=== PATIENT | female | born 1995 | race African-American/Black ===

== ENCOUNTER 2017-03-24 16:40 | Emergency (ER) | payer BC, OTHER ==
[~2017-03-24] VITALS: Ht 167.6 cm; Wt 65.0 kg
[~2017-03-24 16:40] MED LIST: Z.0.NO CURRENT MEDS
[2017-03-24 16:41] VITALS: BP 146/122; PULSE 69; RESP 16; TEMP 97.5; O2SAT 99
--- NOTE | 2017-03-24 18:51 | PD ---
HPI Chief Complaint: Cold / Flu Symptoms Time Seen by Provider: 18:36 Travel History International Travel<30 days: No Contact w/Intl Traveler<30days: No Traveled to known affect area: No History of Present Illness HPI 21-year-old female that presents to the ED for evaluation of cold-like symptoms. Patient she's had cold like symptoms for past 4 days and now she feels better. Per patient her work but not let her go back to work but she has not worked. Per patient she was having nausea, bodies, fevers, congestion and cough. She denies any chest or shortness of breath. No abdominal pain. Nausea or vomiting. Per patient she has been feeling better today and she would like to go back to work tomorrow if possible. Again she has no other medical issues. His been taking [id number] remedies with good relief. Per patient she didn't want to come but her boss will not let her go back to work unless she gets a note. PFSH Past Medical History Asthma: Yes Diminished Hearing: No Immunizations Current: Yes ?: Not Social History Alcohol Use: No Tobacco Use: No Substance Use: No Allergies-Medications (Allergen,Severity, Reaction): Coded Allergies: No Known Allergies (Verified , 10/09/09) Reported Meds & Prescriptions Reported Meds & Active Scripts Active Reported No Current Meds (Miscellaneous Medication) [facility] Review of Systems Except as stated in HPI: all other systems reviewed are Neg Physical Exam Narrative GENERAL: Well-nourished, well-developed patient in no apparent distress. SKIN: Warm and dry. HEAD: Atraumatic. Normocephalic. EYES: Pupils equal and round reactive to light and accommodation. No scleral icterus. No injection or drainage. ENT: No nasal bleeding or discharge. Mucous membranes pink and moist. TMs are clear with no sign of infection or perforation. No mastoid tenderness. Ear canals are intact bilaterally. No lymphadenopathy. Nostril mucosa is red and moist with clear mucus noted. No sinus tenderness to palpation noted. Tonsils are not enlarged or swollen. No ulvua Deviation. Tongue is midline. NECK: Trachea midline. No JVD. No meningeal signs noted CARDIOVASCULAR: Regular rate and rhythm. RESPIRATORY: No accessory muscle use. Clear to auscultation. Breath sounds equal bilaterally. GASTROINTESTINAL: Abdomen soft, non-tender, nondistended. Hepatic and splenic margins not palpable. MUSCULOSKELETAL: Extremities without clubbing, cyanosis, or edema. No obvious deformities. NEUROLOGICAL: Awake and alert. No obvious cranial nerve deficits. Motor grossly within normal limits. Five out of 5 muscle strength in the arms and legs. Normal speech. PSYCHIATRIC: Appropriate mood and affect; insight and judgment normal. Data Data Last Documented VS Vital Signs Date Time Temp Pulse Resp B/P (MAP) Pulse Ox O2 Delivery O2 Flow Rate FiO2 03/24/17 16:41 97.5 69 16 146/122 (130) 99 Room Air MDM Medical Decision Making Medical Screen Exam Complete: Yes Emergency Medical Condition: No Medical Record Reviewed: Yes Differential Diagnosis Cold-like symptoms versus work note versus flu Narrative Course 21-year-old female that presents to the ED for evaluation of cold-like symptoms since here mainly for a work note. At this time there doesn't appear to be in acute disease. A medical screening exam was performed: At the time of evaluation the presenting medical condition was determined not to be of an emergent nature. The patient was given the option of receiving additional care, but declined. Patient was given options for additional community resources from which to obtain care. The Patient Has Been advised to seek medical attention for their presenting complaint. The patient has been advised to return to the ER at any time if an emergent condition develops. Diagnosis Primary Impression: Encounter for medical screening examination Med/Other Pt SpecificInfo: No Change to Meds Disposition: 01 DISCHARGE HOME Condition: Stable Theodore Townsend Mar 24, 2017 18:51
== END 2017-03-24 19:02 | disposition left against medical advice (07) ==
LOC: NEPK 16:40
DX: Z02.89 Encounter for other administrative examinations (principal)
CPT/HCPCS: 99281